=== PATIENT | female | born 1955 ===

== ENCOUNTER → 2018-09-27 21:13 | Outpatient (REF) | payer OTHER, SELFPAY ==
[2018-09-27 21:49] LABS: Add Manual Diff / Slide Review NO; Basophils Percent Auto 0.9 % (0-2); Eosinophils Percent Auto 0.9 % (2-4); Hematocrit 41.2 % (36-46); Hemoglobin 13.8 g/dL (12.0-16.0); Lymphocytes Percent Auto 30.1 % (25-40); Mean Corpuscular HGB Conc 33.5 % (30-36); Mean Corpuscular Hemoglobin 32.2 PG (26-34); Mean Corpuscular Volume 96.1 fL (80-100); Monocytes Percent Auto 6.8 % (3-14); Neutrophils Absolute Auto 5300 /uL (3000-5900); Neutrophils Percent Auto 61.3 % (50-75); Platelet Count 450 X10^3/uL (150-400); Red Blood Cell Count 4.29 X10^6/uL (4.0-5.2); Red Cell Distribution Width 13.5 % (11.6-14.8); White Blood Cell Count 8.7 X10^3/uL (4.5-11.0)
[2018-09-27 22:21] LABS: HEMOLYSIS < 15 (0-50); Iron 54 ug/dL (37-170)
[2018-09-27 22:33] LABS: Percent Iron Saturation 18 % (15-50); Total Iron Binding Capacity 303 ug/dL (265-497); Transferrin 249 mg/dL (206-381)
[2018-09-27 22:40] LABS: Free T3, Triiodothyronine Free 2.47 pg/mL (2.77-5.27); Free T4, Direct Thyroxine 0.81 ng/dL (0.78-2.19)
[2018-09-27 22:53] LABS: Thyroid Stimulating Hormone 4.06 uIU/mL (0.47-4.68)
[2018-09-27 23:01] LABS: Ferritin 36.9 ng/mL (11.1-264)
== END ==
LOC: LAB 21:13
PROVIDERS: Visit Provider Acupuncturist
DX: B34.8 Other viral infections of unspecified site (principal)
CPT/HCPCS: 82728; 83540; 83550; 84439; 84443; 84481; 85025; 86644

== ENCOUNTER → 2018-12-08 21:15 | Outpatient (REF) | payer OTHER, SELFPAY ==
[2018-12-08 22:01] LABS: Free T3, Triiodothyronine Free 3.61 pg/mL (2.77-5.27); Free T4, Direct Thyroxine 0.75 ng/dL (0.78-2.19)
[2018-12-08 22:14] LABS: Thyroid Stimulating Hormone 3.85 uIU/mL (0.47-4.68)
[2018-12-10 13:52] LABS: Dehydroepiandrosterone Sulfate 21 mcg/dL (12-133)
[2018-12-10 16:15] LABS: Sex Hormone Binding Globulin 58 nmol/L (14-73)
[2018-12-11 20:06] LABS: Triiodothyronine T3 Total 93 ng/dL (76-181)
[2018-12-11 20:07] LABS: Progesterone 3.1 ng/mL
[2018-12-13 22:48] LABS: Estriol,Serum <0.10 ng/mL; Estrone 10 pg/mL
[2018-12-15 08:14] LABS: Triiodothyronine T3 Reverse 11 ng/dL (8-25)
== END ==
LOC: LAB 21:15
PROVIDERS: Visit Provider Acupuncturist
DX: N95.9 Unspecified menopausal and perimenopausal disorder (principal); Z79.890 Hormone replacement therapy; E03.9 Hypothyroidism, unspecified; E61.1 Iron deficiency; R53.82 Chronic fatigue, unspecified
CPT/HCPCS: 36415; 82627; 82671; 84144; 84270; 84439; 84443; 84480; 84481; 84482

== ENCOUNTER → 2019-02-22 21:19 | Outpatient (REF) | payer OTHER, SELFPAY ==
[2019-02-22 22:23] LABS: HEMOLYSIS < 15 (0-50); Iron 117 ug/dL (37-170)
[2019-02-22 22:24] LABS: Add Manual Diff / Slide Review NO; Basophils Absolute Auto 0 /uL (0-100); Basophils Percent Auto 0.7 % (0-2); Eosinophils Absolute Auto 100 /uL (0-450); Eosinophils Percent Auto 0.9 % (2-4); Hematocrit 40.4 % (36-46); Hemoglobin 13.7 g/dL (12.0-16.0); Lymphocytes Absolute Auto 1500 /uL (1100-4500); Lymphocytes Percent Auto 22.2 % (25-40); Mean Corpuscular HGB Conc 33.9 % (30-36); Mean Corpuscular Hemoglobin 33.5 PG (26-34); Mean Corpuscular Volume 98.7 fL (80-100); Monocytes Absolute Auto 300 /uL (0-900); Monocytes Percent Auto 3.8 % (3-14); Neutrophils Absolute Auto 4700 /uL (1500-7000); Neutrophils Percent Auto 72.4 % (50-75); Platelet Count 390 X10^3/uL (150-400); Red Blood Cell Count 4.09 X10^6/uL (4.0-5.2); Red Cell Distribution Width 13.9 % (11.6-14.8); White Blood Cell Count 6.6 X10^3/uL (4.5-11.0)
[2019-02-22 22:33] LABS: Percent Iron Saturation 36 % (15-50); Total Iron Binding Capacity 327 ug/dL (265-497); Transferrin 267 mg/dL (206-381)
[2019-02-25 15:31] LABS: Progesterone 13.6 ng/mL
[2019-02-26 14:59] LABS: CMV IgG Antibody > 10.00 U/mL (< 0.60); CMV IgM Antibody < 30.00 AU/mL (< 30.00)
[2019-02-26 21:54] LABS: Estriol,Serum <0.10 ng/mL; Estrone 22 pg/mL
== END ==
LOC: LAB 21:19
PROVIDERS: Visit Provider Acupuncturist
DX: E61.1 Iron deficiency (principal); R53.82 Chronic fatigue, unspecified; N95.9 Unspecified menopausal and perimenopausal disorder; Z79.890 Hormone replacement therapy
CPT/HCPCS: 36415; 82627; 82671; 82728; 83540; 83550; 84144; 85025; 86644; 86645